=== PATIENT | male | born 1980 | race Two or more races ===

== ENCOUNTER 2017-05-15 12:57 | Emergency (ER) | payer MEDICAID, SELFPAY ==
[2017-05-15 12:58] VITALS: BP 145/89; PULSE 94; RESP 16; TEMP 37.2; O2SAT 100; BMI 34.2
--- NOTE | 2017-05-15 13:47 | ED.VISSUMM ---
- ER Visit Summary Date of Service: 05/15/17 Chief Complaint: Cluster headache History of Present Illness: The patient is a 37 M with a history of cluster headaches presenting with a flareup. He states that his headache is left-sided. Denies new or concerning features. Not sudden or severe at onset. No other symptoms such as neck pain or fever. He states that he has seen multiple specialists for this. Physical Examination: Vitals are within normal limits. He is walking around in the room when I examined him. He is not in distress. Neck is supple. No meningeal findings. Pupils are equal and reactive. Test Results: None performed Emergency Department Course and Treatment: He states that the only thing that works for him is Dilaudid. Previous providers have been concerned about the fact that he goes to multiple facilities and always requests Dilaudid. He states that nothing else works for him and that he has seen almost every headache specialist in [facility] through multiple different health systems. Discussed my concerns with him but he is not comfortable being treated with other meds. Treatment Plan: He was given 1mg of sub Q dilaudid and discharged to followup with his doctor Disposition: Home in stable condition Impression: Initial encounter for acute on chronic cluster headache This note was generated with [employer] dictation software. It may contain incorrect words, spelling, and punctuation that were not noted in review of the chart prior to signing ED Disposition - Plan for ED Patient: Chief Complaint: Headache Instructions: ED Headache Cluster Referrals: Care Physician,No Primary [Primary Care Provider] -
--- NOTE | 2017-05-15 13:51 | ED.DCSUM_ITS ---
- ER Visit Summary Date of Service: 05/15/17 Chief Complaint: Cluster headache History of Present Illness: The patient is a 37 M with a history of cluster headaches presenting with a flareup. He states that his headache is left- sided. Denies new or concerning features. Not sudden or severe at onset. No other symptoms such as neck pain or fever. He states that he has seen multiple specialists for this. Physical Examination: Vitals are within normal limits. He is walking around in the room when I examined him. He is not in distress. Neck is supple. No meningeal findings. Pupils are equal and reactive. Test Results: None performed Emergency Department Course and Treatment: He states that the only thing that works for him is Dilaudid. Previous providers have been concerned about the fact that he goes to multiple facilities and always requests Dilaudid. He states that nothing else works for him and that he has seen almost every headache specialist in [facility] through multiple different health systems. Discussed my concerns with him but he is not comfortable being treated with other meds. Treatment Plan: He was given 1mg of sub Q dilaudid and discharged to followup with his doctor Disposition: Home in stable condition Impression: Initial encounter for acute on chronic cluster headache This note was generated with [employer] dictation software. It may contain incorrect words, spelling, and punctuation that were not noted in review of the chart prior to signing ED Disposition - Plan for ED Patient: Chief Complaint: Headache Instructions: ED Headache Cluster Referrals: Care Physician,No Primary [Primary Care Provider] -
[2017-05-15] MEDS: HYDROmorphone 1 MG/ML Syringe SC (13:55)
[2017-05-15] MEDS: Ketorolac 60 MG/2 ML Vial IM (14:44)
[2017-05-15 14:59] VITALS: BP 138/86; PULSE 81; RESP 16; O2SAT 96
== END 2017-05-15 15:00 | disposition home or self-care (01) ==
LOC: ED 14:03
PROVIDERS: Emergency Provider Emergency Medicine
DX: G44.029 Chronic cluster headache, not intractable (principal)
CPT/HCPCS: 99282

== ENCOUNTER 2017-05-18 15:48 | Emergency (ER) | payer MEDICAID, SELFPAY ==
[2017-05-15 14:59] VITALS: BP 138/86
[2017-05-18 15:49] VITALS: BP 155/94; PULSE 85; RESP 16; TEMP 36.2; O2SAT 98; BMI 31.4
--- NOTE | 2017-05-18 16:19 | ED.RN ---
PT STATES THE PAIN IS FADING AWAY AND IS GOING TO GO HOME
== END 2017-05-18 16:41 | disposition left against medical advice (07) ==
LOC: ED 16:29
PROVIDERS: Emergency Provider Emergency Medicine
DX: R51 Headache (principal)

== ENCOUNTER 2017-06-16 11:31 | Emergency (ER) | payer MEDICAID, SELFPAY ==
[2017-06-16 11:31] VITALS: BP 150/106; PULSE 88; RESP 16; TEMP 36.6; O2SAT 99; BMI 34.4
--- NOTE | 2017-06-16 12:02 | ED.DCSUM_ITS ---
- ER Visit Summary Date of Service: 06/16/17 Chief Complaint: Headache History of Present Illness: The patient is a 37 M with reported history of cluster headaches. Patient states he felt his cluster headache coming on at home. He states he put oxygen on for 45 minutes and took a dose of prednisone. He is tried Aleve without improvement. He complains of pain in the left side of his head and behind his left eye. He has light sensitivity but no change in vision. His left eye is tearing. These are all consistent with his prior flares. Physical Examination: Vital signs are significant for blood pressure 150/106, otherwise unremarkable. Patient is standing in a darkened room. He is in no acute distress but is somewhat anxious. Heart is regular rate and rhythm. Lung sounds are clear. Abdomen is soft nontender. Neuro exam is normal. Test Results: [] Emergency Department Course and Treatment: Patient was ordered Toradol, Benadryl , and Phenergan along with IV fluids and oxygen. When I went back to take another patient's chart to that area he was standing in the hallway stating that he was starting to feel better just wish to go home without any treatment. I did note on previous physician's note that patient had been seen at other hospitals which this physician worked at with same stories requesting Dilaudid specifically. At this time patient will not be given any treatment and discharged per his request. Treatment Plan: [] Disposition: Discharge Impression: Headache This note was generated with [employer] dictation software. It may contain incorrect words, spelling, and punctuation that were not noted in review of the chart prior to signing ED Disposition - Plan for ED Patient: Chief Complaint: Headache Referrals: Care Physician,No Primary [Primary Care Provider] -
--- NOTE | 2017-06-16 12:02 | ED.DEP ---
ED Disposition - Plan for ED Patient: Disposition: Home or Assisted Living Chief Complaint: Headache Instructions: ED Headache Cluster Referrals: Rick Khan MD [STAFF PHYSICIAN] - As Needed
== END 2017-06-16 12:20 | disposition home or self-care (01) ==
LOC: ED 12:09
PROVIDERS: Emergency Provider Emergency Medicine
DX: R51 Headache (principal); R11.0 Nausea
CPT/HCPCS: 96374; 96375; 99282

== ENCOUNTER 2017-06-21 17:02 | Emergency (ER) | payer MEDICAID, SELFPAY ==
[2017-06-21 17:03] VITALS: BP 140/101; PULSE 116; RESP 18; TEMP 36.6; O2SAT 100; BMI 34.0
--- NOTE | 2017-06-21 18:44 | ED.DCSUM_ITS ---
- ER Visit Summary Date of Service: 06/21/17 Chief Complaint: Headache History of Present Illness: The patient is a 37 M presenting with headache which started today. Gradual onset. Similar to previous cluster headaches. He states he is on chronic prednisone for cluster headaches per his neurologist. He states the only thing that works the headache flares up is Dilaudid. He has tried Aleve at home. Denies fever. Denies other complaints. Physical Examination: Vitals are stable. Patient is afebrile. Alert no acute distress. HEENT exam is unremarkable. Neck is supple. No meningismus Lungs are clear and equal bilaterally. Heart is regular rate and rhythm. Abdomen is soft nontender nondistended. Extremities are unremarkable. Skin is warm and dry. No focal neurologic deficit. Remainder of exam is unremarkable. Emergency Department Course and Treatment: Patient given 1 mg of Dilaudid subcutaneously. He states his headache is improved and is requesting discharge. Advised to follow-up with his neurologist. Advised to continue his medications as directed. Advised to return to ED for worsening complaints. Disposition: Discharge home Impression: Acute on chronic headache This note was generated with [employer] dictation software. It may contain incorrect words, spelling, and punctuation that were not noted in review of the chart prior to signing ED Disposition - Plan for ED Patient: Chief Complaint: Headache Referrals: Care Physician,No Primary [Primary Care Provider] -
[2017-06-21] MEDS: HYDROmorphone 1 MG/ML Syringe SC (18:59)
--- NOTE | 2017-06-21 19:03 | ED.RN ---
PT ASKING WHAT STRENGTH OF DILAUDID . LOOKED THRU PT REPORT. SEEN HERE SEVERAL DAYS AGO. REQUESTED DILAUDID AND LEFT WITHOUT TREATMENT WHEN HE DID NOT RECEIVE IT
--- NOTE | 2017-06-21 19:06 | ED.DEP ---
ED Disposition - Plan for ED Patient: Chief Complaint: Headache Instructions: ED Headache Cluster Prescriptions: Naproxen [Naprosyn] 500 mg PO BID PRN #20 tablet Referrals: Care Physician,No Primary [Primary Care Provider] - Rick Khan MD [STAFF PHYSICIAN] -
--- NOTE | 2017-06-21 19:23 | ED.RN ---
PT ASKED IF HIS RIDE SHOULD COME INTO THE E.D. AND THIS NURSE REPLIED YES. PT LEFT WITHOUT INSTRUCTIONS WITHOUT THIS NURSE KNOWING. ROOM 18 IS EMPTY. UNABLE TO REEVALUATE MEDICATION OR OBTAIN VITAL SIGNS.
== END 2017-06-21 19:25 | disposition home or self-care (01) ==
PROVIDERS: Emergency Provider Emergency Medicine
DX: R51 Headache (principal); Z79.52 Long term (current) use of systemic steroids
CPT/HCPCS: 96372; 99282

== ENCOUNTER 2018-05-05 16:26 | Emergency (ER) | payer MEDICAID, SELFPAY ==
[2018-05-05 16:26] VITALS: BMI 31.4
[2018-05-05 16:27] VITALS: BP 169/100; PULSE 92; RESP 16; TEMP 36.4; O2SAT 100; BMI 30.7
--- NOTE | 2018-05-05 16:45 | ED.VISSUMM ---
- ER Visit Summary Date of Service: 05/05/18 Chief Complaint: Left-sided cluster headache History of Present Illness: The patient is a 38 M who presents for 1-1/2 hours of left-sided cluster headache. Patient states he has a history of left cluster headaches. He tried high flow oxygen at home without any relief. He tried ibuprofen and verapamil as well. Headache is worse with exposure to light. He has associated left eye tearing. He denies any fever, visual changes, nausea or vomiting, weakness or numbness in the arms or legs. He has had multiple prior headaches and states they are getting more frequent changes. Denies any other medical history. Physical Examination: Vital signs: afebrile, hemodynamically stable, no hypoxia on room air General: well nourished, well developed, in no distress him a pacing around the room with the lights off Skin: warm, dry, no rash, no pallor no temporal artery tenderness, no vesicular rash HEENT: normocephalic and atraumatic; PERRL, EOMI, left with conjunctival injection and tearing. Moist mucous membranes Cardiovascular: regular rate and rhythm without murmurs, no peripheral edema, 2+ pulses all distal extremities Respiratory: No increased work of breathing, lungs are clear to auscultation bilaterally, no rales, rhonchi or wheezing Abdominal: Abdomen is soft, nontender with normoactive bowel sounds, no guarding or rebound, no masses MSK: Moves all extremities, no deformities, normal strength Neuro: Awake and alert, oriented ?4. No facial droop, sensation and motor function intact and symmetric Test Results: [] Emergency Department Course and Treatment: Patient was placed on nonrebreather high flow oxygen. He was given Toradol, Phenergan, Benadryl and IV fluids. he has no red flag symptoms that are concerning for a different cause of his headache would warrant imaging or further workup. Patient declined the Phenergan, as he stated he was not nauseated. Patient was reevaluated and had taken the oxygen off, as he stated it was starting to bother him. I discussed with him that oxygen is the first line treatment for cluster headaches, and he states he tried it for 16 minutes prior to coming in at home and it did not help. He states that what he has gotten before is the only thing that helps him. Chart review shows that he has gotten relief from Dilaudid in the past. I discussed with patient that I do not give Dilaudid for headaches, and he stated that he understood. He requested discharge and did not wish any further medications. He stated his symptoms usually resolve after 6 hours. Patient was discharged home. Treatment Plan: [] Disposition: [] Impression: Cluster headache This note was generated with [employer] dictation software. It may contain incorrect words, spelling, and punctuation that were not noted in review of the chart prior to signing ED Disposition - Plan for ED Patient: Disposition: Home or Assisted Living Chief Complaint: Headache Instructions: ED Headache Cluster Referrals: Care Physician,No Primary [Primary Care Provider] - Doctor,Your [STAFF PHYSICIAN] - As soon as possible Additional Instructions: Please follow-up with your neurologist as soon as possible to discuss further therapy for your recurrent cluster headaches. If you have any worsening of your condition or any new concerning symptoms, please return immediately to the emergency department for another evaluation.
[2018-05-05] MEDS: DiphenhydrAMINE 50 MG/ML Syringe 25 MG IV (17:04)
[2018-05-05] MEDS: 0.9% Normal Saline 1,000 ML 999 ML IV (17:04)
[2018-05-05] MEDS: Ketorolac 30 MG/ML Syringe IV (17:04)
--- NOTE | 2018-05-05 17:30 | ED.DEP ---
ED Disposition - Plan for ED Patient: Disposition: Home or Assisted Living Chief Complaint: Headache Instructions: ED Headache Cluster Referrals: Care Physician,No Primary [Primary Care Provider] - Doctor,Your [STAFF PHYSICIAN] - As soon as possible Additional Instructions: Please follow-up with your neurologist as soon as possible to discuss further therapy for your recurrent cluster headaches. If you have any worsening of your condition or any new concerning symptoms, please return immediately to the emergency department for another evaluation.
== END 2018-05-05 17:47 | disposition home or self-care (01) ==
PROVIDERS: Emergency Provider Emergency Medicine
DX: G44.009 Cluster headache syndrome, unspecified, not intractable (principal)
CPT/HCPCS: 96361; 96374; 96375; 99283